=== PATIENT | female | born 1950 | race Caucasian/White ===

== ENCOUNTER 2020-10-01 09:35 | Inpatient (IN) | payer OTHER ==
[~2020-10-01] VITALS: Ht 154.9 cm; Wt 49.4 kg
[~2020-10-01 09:35] MED LIST: FLOMAX0.4 MG PO; NORCO 5-325 TA1 EACH PO; TORADOL 10 MG T10 MG PO; ZOFRAN ODT 4 MG4 MG PO
[2020-10-01 10:56] LABS: HEMOGLOBIN 11.8 gm/dl (12.3-15.3); WHITE BLOOD COUNT 7.4 K/UL (4.5-11.0)
[2020-10-01 11:22] LABS: BUN/CREATININE RATIO 21 (0-10)
[2020-10-02 06:27] LABS: HEMOGLOBIN 10.5 gm/dl (12.3-15.3); WHITE BLOOD COUNT 7.9 K/UL (4.5-11.0)
[2020-10-02 06:28] LABS: RED BLOOD COUNT 3.55 M/UL (4.00-5.10)
--- NOTE | 2020-10-02 19:00 | NUR ---
18:35 PT ARRIVED FROM ICU, HOOKED UP TO MONITORS, ALERT AND ORIENTED, VSS AT THIS TIME, ROOM AIR, WILL GIVE REPORT TO ONCOMING RN.
[2020-10-03 02:33] LABS: HEMOGLOBIN 10.6 gm/dl (12.3-15.3); RED BLOOD COUNT 3.62 M/UL (4.00-5.10); WHITE BLOOD COUNT 7.4 K/UL (4.5-11.0)
[2020-10-04 03:06] LABS: HEMOGLOBIN 10.8 gm/dl (12.3-15.3); RED BLOOD COUNT 3.67 M/UL (4.00-5.10); WHITE BLOOD COUNT 6.1 K/UL (4.5-11.0)
[2020-10-04] MEDS ORDERED: COZAAR 25MG TAB25 MG PO (13:01)
[2020-10-04] MEDS ORDERED: ASPIRIN EC81 MG PO (13:01)
[2020-10-04] MEDS ORDERED: FUROSEMIDE20 MG PO (13:01)
[2020-10-04] MEDS ORDERED: LOPRESSOR 50 MG50 MG PO (13:01)
== END 2020-10-04 17:45 | disposition home or self-care (01) | DRG 286 ==
LOC: ER1 09:35 → PROG CARE 13:25 → CDU 13:25 → CCU 13:25 → PROG CARE 10-02 18:45
PROVIDERS: Emergency Medicine; Internal Medicine; Internal Medicine Cardiovascular Disease; Physician Assistant; Physician Assistant Medical; ADMIT Hospitalist
PROC: 4A023N7 Measurement of Cardiac Sampling and Pressure, Left Heart, Percutaneous Approach (ICD-10-PCS; principal; 2020-10-04)
PROC: B211YZZ Fluoroscopy of Multiple Coronary Arteries using Other Contrast (ICD-10-PCS; 2020-10-04)
DX: I11.0 Hypertensive heart disease with heart failure (principal); I50.21 Acute systolic (congestive) heart failure; J96.01 Acute respiratory failure with hypoxia; J81.1 Chronic pulmonary edema; I42.8 Other cardiomyopathies; Z20.822 Contact with and (suspected) exposure to COVID-19; R00.0 Tachycardia, unspecified; I44.7 Left bundle-branch block, unspecified
CPT/HCPCS: ECHO; 36415; 71045; 80048; 80053; 80061; 82550; 82553; 83605; 83735; 83880; 84439; 84443; 84484; 85025; 85027; 85730; 87040; 93005; 93306; 96365; 96367; 96375; 99152; 99285; C1769; C1887; C1894; J0696; J1644; J1940; J2270; J2370; J3010; J7030; J7040; Q9965; Q9967; U0002

== ENCOUNTER 2022-05-18 11:47 | Emergency (ER) | payer OTHER ==
[~2022-05-18 11:47] MED LIST changes: +ASPIRIN EC81 MG PO; +COZAAR 25MG TAB25 MG PO; +FUROSEMIDE20 MG PO; +LOPRESSOR 50 MG50 MG PO
== END 2022-05-18 14:25 | disposition home or self-care (01) ==
LOC: ER1 11:47
DX: S82.432A Displaced oblique fracture of shaft of left fibula, initial encounter for closed fracture (principal); S82.832A Other fracture of upper and lower end of left fibula, initial encounter for closed fracture; I11.0 Hypertensive heart disease with heart failure; I50.9 Heart failure, unspecified; W01.0XXA Fall on same level from slipping, tripping and stumbling without subsequent striking against object, initial encounter; Y92.009 Unspecified place in unspecified non-institutional (private) residence as the place of occurrence of the external cause
CPT/HCPCS: 73610; 73630; 99283